=== PATIENT | male | born 1960 | race Caucasian/White ===

== ENCOUNTER → 2017-10-02 | Outpatient (CLI) | payer OTHER ==
[~2017-10-02] MED LIST: ACETAMINOPHEN-1 EAC1 PO; ACETAMINOPHEN650 M5 PO; AMBIEN 5 MG TABL5 M1 PO; AMBIEN CR12.5 MG PO; ASPIRIN EC81 M1 PO; ATIVAN1 MG PO; BRILINTA90 MG PO; CIALIS10 MG PO; ELIQUIS5 MG PO; FISH OIL; IBUPROFEN 200200 M1 PO; IBUPROFEN 800800 M1 PO; LIPITOR40 MG PO; LISINOPRIL40 MG PO; LOPRESSOR 50 MG50 M1; LOPRESSOR50 PO; MACROBID 100 M100 M1 PO; NEOSPORIN OINTM15 GM TP; NIACIN; NORVASC5 MG PO; OMEPRAZOLE40 MG PO; PERCOCET PO; PLAVIX 75 MG TA75 M1 PO; PYRIDIUM200 MG PO; SORINE 80 MG TA80 M1 PO; VALIUM5 MG PO; VITAMIN C120 GM; WELCHOL 625 MG625 M1 PO
[2017-10-02 09:26] LABS: HEMATOCRIT 53.7 % (42.0-52.0); HEMOGLOBIN 18.5 gm/dL (14.0-18.0); MCHC 34.4 g/dL (28.0-37.0); MCV 87.3 fL (80.0-100.0); MPV 6.3 fl. (7.2-11.1); NUCLEATED RBCS 0 /100WBC; PLATELET COUNT* 196 thou/uL (150-400); RBC 6.15 mil/uL (4.50-6.00); RDW-CV 13.7 % (10.5-14.5); WBC 13.6 thou/uL (4.0-11.0)
[2017-10-02 09:43] LABS: ABSOLUTE LYMPHOCYTES 0.5 thou/uL (0.8-5.3); ABSOLUTE MONOCYTES 0.4 thou/uL (0.0-1.2); ABSOLUTE NEUTROPHILS 12.6 thou/uL (1.6-8.1); PLATELET ESTIMATE ADEQUATE
[2017-10-02 09:44] LABS: ALBUMIN 3.8 g/dL (3.4-5.0); ALKALINE PHOSPHATASE 59 U/L (46-116); ANION GAP 11 mmol/L (7-16); BUN 21 mg/dL (7-18); CALCIUM 8.8 mg/dL (8.5-10.1); CHLORIDE 102 mmol/L (98-107); CHOLESTEROL 110 mg/dL (<200); CO2 26 mmol/L (21-32); GLUCOSE 125 mg/dL (70-99); HDL CHOLESTEROL 46 mg/dL (>40); LDL CHOLESTEROL 56 mg/dL (<100); POTASSIUM 3.9 mmol/L (3.5-5.1); SGOT 27 U/L (15-37); SGPT 56 U/L (30-65); SODIUM 139 mmol/L (136-145); TC:HDL 2.4 Ratio (Not establshd); TOTAL PROTEIN 6.9 g/dL (6.4-8.2); TRIGLYCERIDE 44 mg/dL (<150); VLDL 9 mg/dL (<40)
[2017-10-02 09:45] LABS: SERUM ASSESSMENT Clear
== END ==
LOC: M.LAB 09:07
PROVIDERS: Internal Medicine Cardiovascular Disease
DX: I25.10 Atherosclerotic heart disease of native coronary artery without angina pectoris (principal); E78.00 Pure hypercholesterolemia, unspecified

== ENCOUNTER 2018-02-28 07:31 | Inpatient (IN) | payer OTHER ==
[~2018-02-28] VITALS: Ht 185.4 cm; Wt 119.7 kg
[~2018-02-28 07:31] MED LIST changes: -AMBIEN CR12.5 MG PO; -ELIQUIS5 MG PO; -SORINE 80 MG TA80 M1 PO; -WELCHOL 625 MG625 M1 PO
[2018-02-28 07:38] VITALS: BP 146/109
[2018-02-28] MEDS ORDERED: WELCHOL 625 MG625 M1 PO (07:44)
[2018-02-28 08:08] LABS: CALCIUM 8.4 mg/dL (8.5-10.1); CREATININE 1.1 mg/dL (0.6-1.3); POTASSIUM 3.4 mmol/L (3.5-5.1)
[2018-02-28 08:09] LABS: ABSOLUTE EOSINOPHILS 0.2 thou/uL (0.0-0.7); ABSOLUTE LYMPHOCYTES 2.8 thou/uL (0.8-5.3); ABSOLUTE MONOCYTES 0.8 thou/uL (0.0-1.2); BASOPHILS 0.4 %; EOSINOPHILS 1.9 %; HEMATOCRIT 54.8 % (42.0-52.0); HEMOGLOBIN 18.5 gm/dL (14.0-18.0); LYMPHOCYTES 28.8 %; MCHC 33.8 g/dL (28.0-37.0); MCV 88.9 fL (80.0-100.0); MONOCYTES 8.4 %; MPV 6.6 fl. (7.2-11.1); NUCLEATED RBCS 0 /100WBC; PLATELET COUNT* 170 thou/uL (150-400); POLYS 60.5 %; RBC 6.16 mil/uL (4.50-6.00); RDW-CV 12.9 % (10.5-14.5); WBC 9.9 thou/uL (4.0-11.0)
[2018-02-28 08:13] LABS: APTT 27.4 Seconds (25.0-31.3); INR 1.2; PROTIME 11.8 Seconds (9.20-11.50)
[2018-02-28 08:19] LABS: ALBUMIN 3.7 g/dL (3.4-5.0); TOTAL BILIRUBIN 1.1 mg/dL (<0.1-1.0); TOTAL PROTEIN 6.9 g/dL (6.4-8.2)
[2018-02-28 12:25] VITALS: BP 135/92
[2018-02-28 12:40] VITALS: BP 135/90
[2018-02-28 12:40] LABS: AMP/METHAMP Negative (Negative); BARBITURATES Negative (Negative); BENZODIAZEPINES Negative (Negative); COCAINE Negative (Negative); METHADONE Negative (Negative); OPIATES Negative (Negative); PCP Negative (Negative); THC Negative (Negative)
--- NOTE | 2018-02-28 13:59 | EKG ---
[place] [address] ELECTROCARDIOGRAM REPORT Name: LEXUS MORALES Room: [address] ADM IN M.R.#: [id number] Admission: 02/28/18 Attend Phys: Filomena Stanley MD Discharge: Date of : 62 Report #: [id number] THIS REPORT FOR: //name// [facility] ED Test Date: 2018-02-28 Test Time: 07:39:19 Pat Name: LEXUS MORALES Department: Room: [facility] Gender: M Hotel Assistant General Manager: Valerie YOUNG : 1960 Requested By: Trudy Acosta Order Number: [id number] MD: Gene Suarez Measurements Intervals [place] Rate: 114 P: [place]: QRS: 83 QRSD: 98 T: -46 QT: 335 QTc: 462 Interpretive Statements Atrial fibrillation Borderline low voltage, extremity leads Repol abnrm suggests ischemia, inferior leads Minimal ST elevation, lateral leads Compared to ECG 10/27/2016 03:15:57 Early repolarization now present Possible ischemia now present ST (T wave) deviation now present Sinus bradycardia no longer present Atrial premature complex(es) no longer present Myocardial infarct finding no longer present Electronically Signed On 02-28-2018 13:59:33 CDT by Gene Suarez [email or web address] <ELECTRONICALLY SIGNED> By: Gene Suarez MD, [facility] 02/28/18 1359 0739 0739 Gene Suarez MD, [facility] /EPI
--- NOTE | 2018-02-28 14:03 | EKG ---
[place] [address] ELECTROCARDIOGRAM REPORT Name: LEXUS MORALES Room: [address] ADM IN M.R.#: [id number] Admission: 02/28/18 Attend Phys: Filomena Stanley MD Discharge: Date of : 62 Report #: [id number] THIS REPORT FOR: //name// [facility] ED Test Date: 2018-02-28 Test Time: 11:56:29 Pat Name: LEXUS MORALES Department: Room: [facility] Gender: Javascript Engineer: Valerie YOUNG : 1960 Requested By: Trudy Acosta Order Number: [id number] MD: Gene Suarez Measurements Intervals [place] Rate: 78 P: [place]: QRS: 74 QRSD: 109 T: 86 QT: 413 QTc: 471 Interpretive Statements Atrial fibrillation Borderline T wave abnormalities Electronically Signed On 02-28-2018 14:03:12 CDT by Gene Suarez [email or web address] <ELECTRONICALLY SIGNED> By: Gene Suarez MD, [facility] 02/28/18 1403 1156 1156 Gene Suarez MD, FACC /EPI
[2018-02-28] MEDS ORDERED: AMBIEN CR12.5 MG PO (14:04)
[2018-02-28 15:42] VITALS: BP 131/84
--- NOTE | 2018-02-28 17:06 | 2DMMODE ---
[place] [address] 2 D/M-MODE ECHOCARDIOGRAM Name: LEXUS MORALES Room: [address] IN [facility]#: [id number] Admission: 02/28/18 Attend Phys: Filomena Stanley MD Discharge: Date of : 62 Date of Service: 02/28/18 1706 Report #: [id number] THIS REPORT FOR: //name// APPROVED REPORT Study performed: 02/28/2018 14:02:35 EXAM: Comprehensive 2D, Doppler, and color-flow Echocardiogram Patient Location: In-Patient Room #: [facility] [place] [facility] [place] Status: routine BSA: 2.45 HR: 72 bpm BP: 135/92 mmHg Rhythm: NSR Other Information Technically limited study due to body habitus, poor endocardial definition. Indications Atrial Fibrillation Chest Pain Echo Enhancing Agent Indication: Endocardial border delineation Agent(s) / Amount(s) Used: Optison 3 cc 2D Dimensions IVSd: 13.82 (7-11mm) LVOT Diam: 23.85 (18-24mm) LVDd: 50.68 mm PWd: 12.23 (7-11mm) Ascending Ao: 38.71 (22-36mm) LVDs: 33.31 (25-40mm) Aortic Root: 45.46 mm Volumes Left Atrial Volume (Systole) LA ESV Index: 25.10 mL/m2 Aortic Valve AoV Peak Jayme.: 0.82 m/s AO Peak Gr.: 2.71 mmHg LVOT Max P.24 mmHg AO Mean Gr.: 1.47 mmHg LVOT Mean P.99 mmHg LVOT Max V: 0.75 m/s AO V2 VTI: 14.29 cm LVOT Mean V: 0.45 m/[place] [address] 2 D/M-MODE ECHOCARDIOGRAM Name: LEXUS MORALES Room: [address] IN M.R.#: [id number] Admission: 02/28/18 Attend Phys: Filomena Stanley MD Discharge: Date of : 62 Date of Service: 02/28/18 1706 Report #: [id number] IAN (VTI): 4.53 cm2 LVOT V1 VTI: 14.51 cm Mitral Valve MV Decel. Time: 136.32 ms MV PHT: 39.53 ms MVA (PHT): 5.56 cm2 TDI Medial E' Jayme.: 0.11 m/s Lateral E' Jayme.: 0.12 m/s Pulmonary Valve PV Peak Jayme.: 0.79 m/s PV Peak Gr.: 2.51 mmHg Tricuspid Valve RAP Estimate: 5.00 mmHg TR Peak Gr.: 21.12 mmHg RVSP: 26.00 mmHg PA Pressure: 26.00 mmHg Left Ventricle The left ventricle is normal size. There is normal LV segmental wall motion. There is normal left ventricular wall thickness. Left ventricular systolic function is normal. The left ventricular ejection fraction is within the normal range. LVEF is 50-55%. This study is not technically sufficient to allow evaluation of the LV diastolic function due to atrial fibrillation. Right Ventricle The right ventricle is normal size. The right ventricular systolic function is normal. Atria Left atrium is mildly dilated. The right atrium size is normal. Aortic Valve The aortic valve is normal in structure. No aortic regurgitation is present. There is no aortic valvular stenosis. Mitral Valve The mitral valve is normal in structure. Trace mitral regurgitation. No evidence of mitral valve stenosis. Tricuspid Valve The tricuspid valve is normal in structure. Trace tricuspid regurgitation. [place] [address] 2 D/M-MODE ECHOCARDIOGRAM Name: LEXUS MOARLES Room: [address] IN [facility]#: [id number] Admission: 02/28/18 Attend Phys: Filomena Stanley MD Discharge: Date of : 62 Date of Service: 02/28/18 1706 Report #: [id number] Pulmonic Valve The pulmonary valve is normal in structure. Trace pulmonic regurgitation. Great Vessels The aortic root is normal in size. IVC is normal in size and collapses >50% with inspiration. Pericardium There is no pericardial effusion. <Conclusion> The left ventricle is normal size. There is normal left ventricular wall thickness. Left ventricular systolic function is normal. The left ventricular ejection fraction is within the normal range. LVEF is 50-55%. This study is not technically sufficient to allow evaluation of the LV diastolic function due to atrial fibrillation. The right ventricle is normal size. Left atrium is mildly dilated. The aortic valve is normal in structure. The mitral valve is normal in structure. Trace mitral regurgitation. The tricuspid valve is normal in structure. IVC is normal in size and collapses >50% with inspiration. There is no pericardial effusion. There is normal LV segmental wall motion. <ELECTRONICALLY SIGNED> By: Gene Suarez MD, FACC 02/28/181705 05 05 Gene Suarez MD, FACC /INF
--- NOTE | 2018-02-28 18:40 | NUR ---
RECEIVED REPORT FROM YURI IN ER. PT TRANSFERED TO TELE FLOOR AROUND 1240, ASSUMED CARE. PT A&OX4, VSS, O2 SAT >90% ON 2L PER NC, TITRATED TO ROOM AIR. PT ABLE TO USE O2 NEEDED FOR COMFORT. PT ORIENTED TO ROOM, BED AND CALL LIGHT. PT COMMUNICATES UNDERSTANDING. ADMISSION HISTORY, EDUCATION AND ASSESSMENT COMPLETED CHARTED. IV'S INTACT AND INFUSING IVF PER EMAR. PT DENIES PAIN OR DISCOMFORT THIS SHIFT. NO CHEST PAIN. LAB CALLED WITH CRITICAL TROPONIN - CARDIOLOGY AND HOSPITALIST NOTIFIED. ORDERS RECEIVED TO RESTART HEPARIN GTT. STAT EKG. PT TO PROCEED WITH CATH IN AM. AT BEDSIDE. PT EATING AND DRINKING WITHOUT ISSUE. PT TO BE NPO AFTER MIDNIGHT. PT ABLE TO BE UP AD CHETAN - LOW FALL RISK PRECAUTIONS IN PLACE. CALL LIGHT IS WITHIN REACH. HOURLY ROUNDING PERFORMED. WCTM FOR DURATION OF SHIFT.
[2018-02-28 19:40] VITALS: BP 152/97
[2018-03-01] VITALS (16 sets, daily range): BP systolic 124–163; BP diastolic 80–99
[2018-03-01 01:07] LABS: INR 1.2; PROTIME 12.1 Seconds (9.20-11.50)
--- NOTE | 2018-03-01 01:11 | NUR ---
ASSUMED CARE OF PT AT 1900. PT IS ALERT AND ORIENTED. VSS. PERRLA. NO COMPLAINTS OF PAIN. PT IS UP AD CHETAN. PT IS ON A HEPARING DRIP. PT IS IN A FIB ON THE TELEMETRY. PT IS RESTING COMFORTABLY IN BED. RESPIRATIONS ARE EVEN AND NONLABORED. WILL CONTNUE TO MONITOR PT.=
[2018-03-01 01:23] LABS: APTT 42.6 Seconds (25.0-31.3)
[2018-03-01 01:43] LABS: ANION GAP 7 mmol/L (7-16); BUN 12 mg/dL (7-18); CALCIUM 8.2 mg/dL (8.5-10.1); CHLORIDE 103 mmol/L (98-107); CHOLESTEROL 110 mg/dL (<200); CO2 28 mmol/L (21-32); GLUCOSE 101 mg/dL (70-99); HDL CHOLESTEROL 39 mg/dL (>40); POTASSIUM 4.1 mmol/L (3.5-5.1); SODIUM 138 mmol/L (136-145); TC:HDL 2.8 Ratio (Not establshd)
[2018-03-01 02:24] LABS: LDL CHOLESTEROL 56 mg/dL (<100); TRIGLYCERIDE 75 mg/dL (<150); VLDL 15 mg/dL (<40)
[2018-03-01 02:30] LABS: SERUM ASSESSMENT CLEAR
--- NOTE | 2018-03-01 07:15 | NUR ---
ASSUMED CARE OF PT ASSESSED AND DOCUMENTED. PT IS ON CARDIAC MONITER TRACING AFIB/AFLUTTER HR 75. PT IS A&O WITH NO C/O PAIN. VSS WNL. PT IS AFEBRILE. HE IS ON ROOM AIR. PT CONT ON A HEPARIN GTT AND IS NPO FOR SCHEDULED FINANCIAL REPORTING ADVISOR. BED IS IN LOW POSITION CALL LIGHT IS IN REACH. WM.
[2018-03-01 10:04] LABS: CALCIUM 8.2 mg/dL (8.5-10.1); MAGNESIUM 1.8 mg/dL (1.8-2.4); POTASSIUM 3.7 mmol/L (3.5-5.1)
--- NOTE | 2018-03-01 11:51 | NUR ---
Pt is A&O. Resides at home with , in room a bedside. Pt is active and independent. Pt states that he is able to work, but has been out of work since May when he was downsized, Pt actively seeking employment. No DME. No hx of HH or SNF. Pt to have cath today. Goal is home at [place]. Following.
--- NOTE | 2018-03-01 16:07 | NUR ---
PT RETURNED FROM THE KNOCK UP ASSEMBLER AT 553. REPORT TAKEN FROM BRANDI. PT REC 5 OF VERSED AND 125 OF FENTANYL. NOM CHANGES IN VESSELS. PT CARDIOVERTED WITH 300 JOULES. PT IN SR. VSS WNL. PT REMAINS AFEBRILE. DINNER HAS BEEN ORDERED.
--- NOTE | 2018-03-01 17:14 | NUR ---
PT HAS RESTED IN HIS ROOM WITH AT BEDSIDE. HE REMAINS SR ON THE MONITER. EDUCATION GIVEN ON DEMAND. HOURLY ROUNDING COMPLETE. SMOKING CESSATION PACKAGE GIVEN.
--- NOTE | 2018-03-01 18:01 | EKG ---
[place] [address] ELECTROCARDIOGRAM REPORT Name: LEXUS MORALES Room: [address] ADM IN M.R.#: [id number] Admission: 02/28/18 Attend Phys: Filomena Stanley MD Discharge: Date of : 62 Report #: [id number] THIS REPORT FOR: //name// [facility] Test Date: 2018-02-28 Test Time: 17:28:14 Pat Name: LEXUS MORALES Department: Room: [address] Gender: M Wan Support Specialist: [facility] : 1960 Requested By: Filomena Stanley Order Number: [id number] Reading MD: Darion Fisher Measurements Intervals [place] Rate: 75 P: [place]: QRS: 89 QRSD: 130 T: 98 QT: 434 QTc: 485 Interpretive Statements Atrial fibrillation Nonspecific intraventricular conduction delay Nonspecific T abnormalities, lateral leads Compared to ECG 02/28/2018 11:56:29 T-wave abnormality still present Electronically Signed On 03-01-2018 18:01:31 CDT by Darion Fisher [email or web address] <ELECTRONICALLY SIGNED> By: Darion Fisher MD, [facility] 03/01/18 1801 172 27 Darion Fisher MD, [facility] /EPI
--- NOTE | 2018-03-01 18:11 | EKG ---
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: : 1960 Requested By: Jasmyne Case Order Number: [id number] Reading MD: Darion Fisher Measurements Intervals [place] Rate: 76 P: [place]: QRS: 92 QRSD: 98 T: 130 QT: 450 QTc: 507 Interpretive Statements Atrial fibrillation Borderline right axis deviation Low voltage, precordial leads Nonspecific T abnormalities, lateral leads Baseline wander in lead(s) V1 Compared to ECG 02/28/2018 11:56:29 T-wave abnormality still present Electronically Signed On 03-01-2018 18:10:57 CDT by Darion Fisher [email or web address] <ELECTRONICALLY SIGNED> By: Darion Fisher MD, FACC 03/01/18 1810 4 4 Darion Fisher MD, FAC /EPI
--- NOTE | 2018-03-01 18:15 | EKG ---
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
--- NOTE | 2018-03-01 19:28 | CARD ---
[address] [address] CARDIAC CATH REPORT Name: MILLIEGEETHALEXUSGELA LACEY Room: [address] IN ..#: [id number] Admission: 02/28/18 Attend Phys: Filomena Stanley MD Discharge: Date of : 62 Report #: [id number] THIS REPORT FOR: //name// APPROVED REPORT Study performed: 03/01/2018 13:17:23 Patient Details Patient Status: In-Patient Room #: 212 The patient is a 58 year-old male Event Personnel Demetrio Davis Sailor, Jeannine Ngo RN Community Resource Consultant, Vidya Cooley Monitor, Raymond Proctor (R) Scrub, Micehlle Edwards RTR Scrub Procedures Performed Art Access - R femoral artery* , Selective Right and Left Coronary Angiography, DANIELS Angiogram, SVG AngiogramLeft Heart Cath w/or w/o Coronaries [id number] [facility] Procedure Narrative The patient was brought electively to the Cardiac Catheterization Laboratory and was prepped and draped in a sterile manner. The right femoral was infiltrated with 2% Lidocaine subcutaneous anesthesia. A 6fr Ultimum Sheath sheath was inserted into the right femoral artery. Coronary angiography was performed using coronary diagnostic catheters. The right coronary system was accessed and visualized with a MPA 6fr catheter. The left coronary system was accessed and visualized with a 6fr JL 4 catheter. The left ventricle was accessed and visualized with a 6fr Pigtail catheter. Left ventricular/Aortic Valve gradient assessed . Left ventriculogram was performed in SAUER projection. Pre-demployment femoral angiogram was performed . Closure device was deployed with a 6 Fr MynxGrip 6/7F. The patient tolerated the procedure well and there were no complications associated with the procedure. Intraoperative Conscious Sedation Sedation start time: 14:06 Case end Time: 14:30 Fentanyl 75 mcg Versed 3 mg Fluoro Time: 6.8 minutes Dose: DAP [id number] cGycm2 1430.46 mGy Contrast Type and Amount: Omnipaque [address] [place] [address] CARDIAC CATH REPORT Name: LEXUS MORALES Room: [address] IN [facility]#: [id number] Admission: 02/28/18 Attend Phys: Filomena Stanley MD Discharge: Date of : 62 Report #: [id number] Coronary Angiography The patient's coronary anatomy is right dominant. [place] Artery Percent Stenosis DANIELS graft to the LAD widely patent. Saphenous vein graft to the PDA and posterior lateral branch of the right coronary artery widely patent. Saphenous vein graft to the diagonal and obtuse marginal branch occluded. Diagnostic Cath Left Main Short and normal. LAD Totally occluded proximally. The mid and distal portion filled by DANIELS graft and free of significant disease. Extensive collaterals to the obtuse marginal branch noted. Circumflex Diffusely moderately plaqued throughout without hemodynamically significant stenoses. OM1 Totally occluded at the ostium and fills by left to left collaterals. OM2 Mildly plaqued. Right Coronary Totally occluded proximally. R PDA Filled by saphenous vein graft and free of significant disease. RPLV Filled by saphenous vein graft and free of significant disease. Hemodynamics The aortic pressure is 143/89 mmHg with a mean of mmHg. The left ventricular pressure is 139/11 mmHg with a mean of mmHg. The left ventricular end diastolic pressure is 18 mmHg. There was no gradient across the aortic valve upon pullback. Conclusion 1. Three-vessel coronary artery disease as outlined above. 2. Patent DANIELS graft to the LAD. 3. Patent saphenous vein graft to the right PDA and posterior lateral LV branch. 4. Occluded graft to the diagonal and obtuse marginal. 5. Extensive left to left collaterals to the obtuse marginal system. 6. Mildly elevated left ventricular end-diastolic [place] [address] CARDIAC CATH REPORT Name: LEXUS MORALES Room: [address] IN [facility]#: [id number] Admission: 02/28/18 Attend Phys: Filomena Stanley MD Discharge: Date of : 62 Report #: [id number] 1. Continue aggressive risk factor modification and medical management. <ELECTRONICALLY SIGNED> By: Demetrio Davis MD, [facility] 10/1927 27 27[facility] Center[facility]yenne Davis MD, FACC /INF
[2018-03-02] VITALS: BP 139/71
[2018-03-02 04:00] VITALS: BP 139/67
--- NOTE | 2018-03-02 04:26 | NUR ---
Assumed care of patient at 1930. Patient rested well throughout the night. Full assessment performed and documented; hourly rounding completed for patient's safety. Patient is A&O x4; up ad brayden in room. SR-SA with PVCs noted on telemetry. Patient c/o stabbing headache that woke him up around 0300; physician notified and order for Tylenol received. All VSS. IVL intact and patent. Call light within patient's reach at all times. Will continue to monitor.
[2018-03-02 08:00] VITALS: BP 128/87
[2018-03-02 08:31] VITALS: BP 139/67
--- NOTE | 2018-03-02 12:16 | EKG ---
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 03/02/18 1216 1 09 Darion Fisher MD, [facility] /EPI
[2018-03-02 12:25] VITALS: BP 126/74
[2018-03-02] MEDS ORDERED: ELIQUIS5 MG PO (15:22)
[2018-03-02] MEDS ORDERED: SORINE 80 MG TA80 M1 PO (15:23)
[2018-03-02] MEDS ORDERED: PLAVIX 75 MG TA75 M1 PO (16:05)
--- NOTE | 2018-03-02 16:45 | NUR ---
ASSUMED CARE OF PT AT 0730. PT REMAINS A&O X4 CALMAND XCOOPERATIVE. PT VSS AND TRACING SA WITH PVC'S ON THE MONITOR. PT DENIES SOA OR CP. PT STABLE ON FEET AND TOLERATING HIS DIET WELL. PT CATH SITE TO RIGHT GROIN LOOKS SUPPLE AND W/O S/S OF BLEEDING.PT DISCHARGED HOME WITH . PT AND VERBALIZED UNDERSTANDING OF DISCHARGE INSTRUCTIONS THAT INCLUDED CATH SITE CARE, ACTIVITY RESTRICTIONS, DIETARY MODIFICATIONS AND MEDICATION MANAGEMENT. IV AND BOILER ENGINEER REMOVED PRIOR TO DC. ALL PRESCRIPTIOMS AND ALL PERSONAL BELONGINGS TAKEN BY PT AT DISCHARGE.
[2018-03-02 17:03] VITALS: BP 114/74
--- NOTE | 2018-03-22 08:22 | CARD ---
[address] [address] CARDIAC CATH REPORT Name: LEXUS MORALES Room: [address]#: [id number] Admission: 02/28/18 Attend Phys: Filoemna Stanley MD Discharge: 03/02/18 Date of : 62 Report #: [id number] THIS REPORT FOR: //name// CC: Filomena Reynolds DATE OF SERVICE: 02/28/2018 INDICATION: Persistent atrial fibrillation. PROCEDURE: Direct current cardioversion. DESCRIPTION OF PROCEDURE: After informed consent was obtained, the patient was brought to the cardiac catheterization holding area. The patient was given intravenous fentanyl and Versed for conscious sedation. Once the patient was adequately sedated, he received a single biphasic shock of 300 joules converting him to normal sinus rhythm. The patient tolerated the procedure well without complication. IMPRESSION: 1. Persistent atrial fibrillation. 2. Successful DC cardioversion to normal sinus rhythm. <ELECTRONICALLY SIGNED> By: Demetrio Davis MD, FACC 03/22/18 0822 1634 0547[facility] Hospit[facility] Davis MD, FACC /nt
== END 2018-03-02 16:40 | disposition home or self-care (01) | DRG 280 ==
LOC: M.ERS 07:31 → M.2W 10:28 → M.TBA-ER 10:28 → M.2W 12:40
PROVIDERS: Family Medicine; Nurse Practitioner Family; Personal Emergency Response Attendant; ADMIT Family Medicine
PROC: 4A023N7 Measurement of Cardiac Sampling and Pressure, Left Heart, Percutaneous Approach (ICD-10-PCS; principal; 2018-03-01)
PROC: B21F1ZZ Fluoroscopy of Other Bypass Graft using Low Osmolar Contrast (ICD-10-PCS; principal; 2018-03-01)
PROC: B2111ZZ Fluoroscopy of Multiple Coronary Arteries using Low Osmolar Contrast (ICD-10-PCS; principal; 2018-03-01)
PROC: B2151ZZ Fluoroscopy of Left Heart using Low Osmolar Contrast (ICD-10-PCS; principal; 2018-03-01)
PROC: B2181ZZ Fluoroscopy of Left Internal Mammary Bypass Graft using Low Osmolar Contrast (ICD-10-PCS; principal; 2018-03-01)
DX: I21.4 Non-ST elevation (NSTEMI) myocardial infarction (principal); I50.43 Acute on chronic combined systolic (congestive) and diastolic (congestive) heart failure; D68.69 Other thrombophilia; I48.91 Unspecified atrial fibrillation; I24.9 Acute ischemic heart disease, unspecified; I24.8 Other forms of acute ischemic heart disease; E78.00 Pure hypercholesterolemia, unspecified; I25.10 Atherosclerotic heart disease of native coronary artery without angina pectoris; I11.0 Hypertensive heart disease with heart failure; E78.5 Hyperlipidemia, unspecified; K58.9 Irritable bowel syndrome, unspecified; E87.6 Hypokalemia; I25.2 Old myocardial infarction; Z95.1 Presence of aortocoronary bypass graft; Z95.5 Presence of coronary angioplasty implant and graft; Z87.442 Personal history of urinary calculi; Z88.1 Allergy status to other antibiotic agents; Z87.891 Personal history of nicotine dependence; Z82.49 Family history of ischemic heart disease and other diseases of the circulatory system; Z79.01 Long term (current) use of anticoagulants; Z79.82 Long term (current) use of aspirin; Z79.899 Other long term (current) drug therapy; Z28.21 Immunization not carried out because of patient refusal

== ENCOUNTER 2018-06-17 11:47 | Emergency (ER) | payer OTHER ==
[~2018-06-17] VITALS: Ht 185.4 cm; Wt 116.1 kg
[~2018-06-17 11:47] MED LIST changes: +AMBIEN CR12.5 MG PO; +ELIQUIS5 MG PO; +SORINE 80 MG TA80 M1 PO; +WELCHOL 625 MG625 M1 PO
[2018-06-17] MEDS ORDERED: FLAGYL500 M1 PO (12:08)
[2018-06-17] MEDS ORDERED: FLOMAX0.4 MG PO (12:08)
[2018-06-17] MEDS ORDERED: LOMOTIL TABLET1 EACH PO (12:09)
[2018-06-17 12:28] LABS: ABSOLUTE EOSINOPHILS 0.2 thou/uL (0.0-0.7); ABSOLUTE LYMPHOCYTES 1.4 thou/uL (0.8-5.3); ABSOLUTE MONOCYTES 0.8 thou/uL (0.0-1.2); ABSOLUTE NEUTROPHILS 5.9 thou/uL (1.6-8.1); BASOPHILS 0.5 %; EOSINOPHILS 2.1 %; HEMATOCRIT 49.6 % (42.0-52.0); HEMOGLOBIN 17.3 gm/dL (14.0-18.0); LYMPHOCYTES 16.7 %; MCH 30.6 pg (26.0-34.0); MCHC 34.9 g/dL (28.0-37.0); MCV 87.8 fL (80.0-100.0); MONOCYTES 10.1 %; MPV 6.7 fl. (7.2-11.1); NUCLEATED RBCS 0 /100WBC; PLATELET COUNT* 152 thou/uL (150-400); POLYS 70.6 %; RBC 5.65 mil/uL (4.50-6.00); RDW-CV 13.9 % (10.5-14.5); WBC 8.3 thou/uL (4.0-11.0)
[2018-06-17 12:35] LABS: ANION GAP 4 mmol/L (7-16); BUN 14 mg/dL (7-18); CALCIUM 8.4 mg/dL (8.5-10.1); CHLORIDE 108 mmol/L (98-107); CO2 30 mmol/L (21-32); GLUCOSE 99 mg/dL (70-99); SODIUM 142 mmol/L (136-145)
[2018-06-17 12:37] LABS: APTT 28.6 Seconds (25.0-31.3); INR 1.2; PROTIME 11.9 Seconds (9.20-11.50)
[2018-06-17 12:57] LABS: ALBUMIN 3.4 g/dL (3.4-5.0); ALKALINE PHOSPHATASE 97 U/L (46-116); LIPASE 159 U/L (73-393); MAGNESIUM 1.7 mg/dL (1.8-2.4); NT-PRO BRAIN NAT PEPTIDE 535 pg/mL (<300); SGOT 51 U/L (15-37); SGPT 93 U/L (30-65); TOTAL BILIRUBIN 0.6 mg/dL (<0.1-1.0); TOTAL PROTEIN 6.2 g/dL (6.4-8.2); TROPONIN-I LEVEL <0.06 ng/mL (<0.06)
[2018-06-17 13:23] VITALS: BP 136/75
--- NOTE | 2018-06-17 16:23 | EKG ---
[place] [address] ELECTROCARDIOGRAM REPORT Name: LEXUS MORALES Room: [facility]#: [id number] Admission: 06/17/18 Attend Phys: Discharge: 06/17/18 Date of : 62 Report #: [id number] THIS REPORT FOR: //name// [facility] ED Test Date: 2018-06-17 Test Time: 12:08:51 Pat Name: LEXUS MORALES Department: Room: Gender: M Identity Access Management Architect: KENNEDY : 1960 Requested By: Yobani Darling Order Number: [id number] MD: Darion Fisher Measurements Intervals [place] Rate: 65 P: 30 [place]: 143 QRS: 56 QRSD: 130 T: 72 QT: 433 QTc: 451 Interpretive Statements Sinus rhythm Supraventricular bigeminy Nonspecific st changes Compared to ECG 03/02/2018 09:12:32 Atrial premature complex(es) now present Electronically Signed On 06-17-2018 16:22:46 [employer] MAINTENANCE by Darion Fisher [email or web address] <ELECTRONICALLY SIGNED> By: Darion Fisher MD, [facility] 06/17/18 1622 07 07 Darion Fisher MD, [facility] /EPI
--- NOTE | 2018-06-19 12:35 | CON ---
[address] [address] CONSULTATION Name: LEXUS MORALES [facility] [place] [facility] [id number] Admission: 06/17/18 Attend Phys: Discharge: 06/17/18 Date of : 62 Report #: [id number] THIS REPORT FOR: //name// CC: Yobani Reynolds DO DATE OF SERVICE: 06/17/2018 HISTORY OF PRESENT ILLNESS: The patient is a 58-year-old white male who I saw in the Emergency Room today after he complained of chest pain. The patient has an extensive past medical history. He had previous quadruple coronary artery bypass surgery in [place], [place] in 1997. In 2015, he underwent coronary artery stenting here at [place]. He was actually admitted here in February with chest pain. Dr. Davis performed repeat cardiac catheterization, which showed a patent DANIELS graft to the LAD, a vein graft to the diagonal, a good vein graft in sequence to the posterior descending and posterolateral branch of the left ventricle. His graft to the circumflex was occluded, filled by collaterals. He was found to be in atrial fibrillation, was cardioverted and placed on sotalol and Eliquis. He actually just saw my partner, Dr. Davis in April. He states he was doing well until 5 days ago, he felt a pain in his left armpit. It is not related to exertion or meals. It tended to occur off and on a couple of days. It was not associated with shortness of breath, diaphoresis, nausea. He denied any trauma to the area. He did well until today. He felt a pain over the left side of his chest. It felt a dull ache. It is not related to coughing. He has had no bleeding. PAST MEDICAL HISTORY: Significant for cholecystectomy. He has had uvulectomy for sleep apnea. He has a history of hypertension and hyperlipidemia. MEDICATIONS: Include amlodipine, atorvastatin, Plavix, WelChol following his cholecystectomy, Eliquis, lisinopril, Ativan, sotalol, Flomax. ALLERGIES: HE HAS INTOLERANCE TO CIPRO. FAMILY HISTORY: Positive for heart disease. SOCIAL HISTORY: He is . He and his live here in [place]. 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 Quit smoking years ago, rarely drinks alcohol. REVIEW OF SYSTEMS: He has had no history of stroke, asthma, peptic ulcer disease, liver disease, kidney disease, cancer, psychiatric illness, chronic skin condition. PHYSICAL EXAMINATION: GENERAL: Revealed a [place] [address] CONSULTATION Name: LEXUS MORALES Room: [facility]#: [id number] Admission: 06/17/18 Attend Phys: Discharge: 06/17/18 Date of : 62 Report #: [id number] VITAL SIGNS: Blood pressure 160/80, pulse is 60. He was afebrile. HEENT: He was anicteric. Conjunctivae pink. Mucous membranes moist. NECK: Veins do not appear distended. No carotid bruits heard. Neck was supple. CHEST: Clear to auscultation. CARDIOVASCULAR: Regular rate without murmur. ABDOMEN: Soft, nontender, no masses were palpated. EXTREMITIES: Had no edema. Posterior pulse 2+ bilaterally. SKIN: Warm, dry. NEUROLOGIC: Nonfocal. LABORATORY DATA: Workup in the Emergency Room today, he had a portable chest x-ray that showed cardiomegaly, clear lung scott. His lab work, sodium 142, creatinine 1.0. Troponin 0.06. His white blood cell count 8.3, hemoglobin 17.3. IMPRESSION AND RECOMMENDATIONS: 1. Chest pain, atypical for angina. No evidence of acute coronary syndrome. Suspect musculoskeletal. 2. Previous coronary artery stent. The patient is on Plavix. 3. History of atrial fibrillation. The patient is on sotalol and Eliquis. 4. Hypertension. The patient on a beta yogi, calcium yogi and RUPINDER inhibitor. 5. Hyperlipidemia. The patient is on a statin drug. 6. History of sleep apnea. The patient had previous surgery. At this time, it is reasonable to discharge the patient from the Emergency Room and I will arrange followup in the Cardiology Clinic. <ELECTRONICALLY SIGNED> By: Darion Fisher MD, FACC 06/19/18 1235 1304 1934Dleon Fisher MD, FACC /nt
== END 2018-06-17 13:24 | disposition home or self-care (01) ==
LOC: M.ERS 11:47
PROVIDERS: Family Medicine
DX: R07.89 Other chest pain (principal); E78.00 Pure hypercholesterolemia, unspecified; Z95.1 Presence of aortocoronary bypass graft; Z95.5 Presence of coronary angioplasty implant and graft; Z87.891 Personal history of nicotine dependence; Z88.1 Allergy status to other antibiotic agents

== ENCOUNTER 2018-10-06 19:57 | Emergency (ER) | payer BC ==
[~2018-10-06] VITALS: Ht 185.4 cm; Wt 117.9 kg
[~2018-10-06 19:57] MED LIST changes: +FLAGYL500 M1 PO; +FLOMAX0.4 MG PO; +LOMOTIL TABLET1 EACH PO
[2018-10-06] MEDS ORDERED: GABAPENTIN 100100 MG (20:15)
[2018-10-06 20:20] LABS: ABSOLUTE BASOPHILS 0.1 thou/uL (0.0-0.2); ABSOLUTE EOSINOPHILS 0.2 thou/uL (0.0-0.7); ABSOLUTE MONOCYTES 0.7 thou/uL (0.0-1.2); ABSOLUTE NEUTROPHILS 5.6 thou/uL (1.6-8.1); BASOPHILS 0.7 %; HEMATOCRIT 51.7 % (42.0-52.0); HEMOGLOBIN 17.6 gm/dL (14.0-18.0); LYMPHOCYTES 23.1 %; MCH 29.4 pg (26.0-34.0); MCV 86.4 fL (80.0-100.0); MPV 6.7 fl. (7.2-11.1); NUCLEATED RBCS 0 /100WBC; PLATELET COUNT* 158 thou/uL (150-400); POLYS 66.2 %; RBC 5.99 mil/uL (4.50-6.00); RDW-CV 13.4 % (10.5-14.5); WBC 8.5 thou/uL (4.0-11.0)
[2018-10-06 20:26] LABS: ANION GAP 8 mmol/L (7-16); BUN 14 mg/dL (7-18); CALCIUM 8.6 mg/dL (8.5-10.1); CHLORIDE 103 mmol/L (98-107); CO2 29 mmol/L (21-32); GLUCOSE 107 mg/dL (70-99); POTASSIUM 3.5 mmol/L (3.5-5.1); SODIUM 140 mmol/L (136-145)
[2018-10-06 20:37] LABS: ALKALINE PHOSPHATASE 77 U/L (46-116); LIPASE 109 U/L (73-393); MAGNESIUM 1.6 mg/dL (1.8-2.4); NT-PRO BRAIN NAT PEPTIDE 379 pg/mL (<300); SGOT 51 U/L (15-37); SGPT 60 U/L (30-65); TOTAL BILIRUBIN 1.8 mg/dL (<0.1-1.0); TOTAL PROTEIN 7.1 g/dL (6.4-8.2); TROPONIN-I LEVEL <0.06 ng/mL (<0.06)
[2018-10-06] MEDS ORDERED: HYDROCODONE-AP1 EAC6 PO (22:14)
[2018-10-06] MEDS ORDERED: FLEXERIL PO (22:14)
[2018-10-06 22:36] VITALS: BP 154/80
--- NOTE | 2018-10-08 14:26 | EKG ---
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 : 1960 Requested By: Demetrius Power Order Number: [id number] MD: Avery Headley Measurements Intervals [place] Rate: 53 P: 24 FL: 159 QRS: 54 QRSD: 114 T: 58 QT: 472 QTc: 444 Interpretive Statements Sinus rhythm Sinus pause Borderline intraventricular conduction delay Borderline low voltage, extremity leads Compared to ECG 06/17/2018 12:08:51 Sinus pause or arrest now present Atrial premature complex(es) no longer present ST (T wave) deviation no longer present Electronically Signed On 10-08-2018 14:25:54 CDT by Avery Headley [email or web address] <ELECTRONICALLY SIGNED> By: Avery Headley MD, FACC 10/08/18 1425 58 2159 Avery Headley MD, FAC /EPI
--- NOTE | 2018-10-08 14:26 | EKG ---
[place] [address] ELECTROCARDIOGRAM REPORT Name: LEXUS MORALES 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 : 1960 Requested By: Demetrius Power Order Number: [id number] MD: Avery Headley Measurements Intervals [place] Rate: 57 P: 32 ND: 159 QRS: 75 QRSD: 99 T: 55 QT: 428 QTc: 417 Interpretive Statements Sinus rhythm Multiform ventricular premature complexes Borderline low voltage, extremity leads Compared to ECG 06/17/2018 12:08:51 Ventricular premature complex(es) now present Atrial premature complex(es) no longer present ST (T wave) deviation no longer present Electronically Signed On 10-08-2018 14:25:49 CDT by Avery Headley [email or web address] <ELECTRONICALLY SIGNED> By: Avery Headley MD, [facility] 10/08/18 1425 00 00 Avery Headley MD, [facility] /EPI
== END 2018-10-06 22:36 | disposition home or self-care (01) ==
LOC: M.ERS 19:57
PROVIDERS: Emergency Medicine Emergency Medical Services
DX: R07.89 Other chest pain (principal); E78.00 Pure hypercholesterolemia, unspecified; K58.9 Irritable bowel syndrome, unspecified; Z87.891 Personal history of nicotine dependence; Z88.1 Allergy status to other antibiotic agents; Z87.442 Personal history of urinary calculi; Z95.5 Presence of coronary angioplasty implant and graft; Z90.49 Acquired absence of other specified parts of digestive tract

== ENCOUNTER 2018-10-31 21:03 | Emergency (ER) | payer BC ==
[~2018-10-31] VITALS: Ht 185.4 cm; Wt 117.9 kg
[~2018-10-31 21:03] MED LIST changes: +FLEXERIL PO; +GABAPENTIN 100100 MG; +HYDROCODONE-AP1 EAC6 PO
[2018-10-31] MEDS ORDERED: AFEDITAB CR60 M1 PO (21:23)
[2018-10-31 21:26] LABS: ABSOLUTE BASOPHILS 0.1 thou/uL (0.0-0.2); ABSOLUTE EOSINOPHILS 0.2 thou/uL (0.0-0.7); ABSOLUTE LYMPHOCYTES 1.1 thou/uL (0.8-5.3); ABSOLUTE MONOCYTES 0.8 thou/uL (0.0-1.2); ABSOLUTE NEUTROPHILS 5.8 thou/uL (1.6-8.1); BASOPHILS 0.8 %; EOSINOPHILS 2.1 %; HEMATOCRIT 51.7 % (42.0-52.0); LYMPHOCYTES 13.8 %; MCH 29.7 pg (26.0-34.0); MCHC 34.7 g/dL (28.0-37.0); MCV 85.4 fL (80.0-100.0); MONOCYTES 10.6 %; MPV 6.6 fl. (7.2-11.1); NUCLEATED RBCS 0 /100WBC; PLATELET COUNT* 175 thou/uL (150-400); POLYS 72.7 %; RBC 6.05 mil/uL (4.50-6.00); RDW-CV 13.3 % (10.5-14.5)
[2018-10-31 21:35] LABS: ANION GAP 11 mmol/L (7-16); BUN 17 mg/dL (7-18); CALCIUM 8.8 mg/dL (8.5-10.1); CHLORIDE 101 mmol/L (98-107); CO2 26 mmol/L (21-32); CREATININE 0.9 mg/dL (0.6-1.3); GLUCOSE 112 mg/dL (70-99); POTASSIUM 3.8 mmol/L (3.5-5.1); SODIUM 138 mmol/L (136-145)
[2018-10-31 21:36] LABS: APTT 30.3 Seconds (25.0-31.3); INR 1.1; PROTIME 11.5 Seconds (9.20-11.50)
[2018-10-31 21:59] LABS: ALBUMIN 3.9 g/dL (3.4-5.0); ALKALINE PHOSPHATASE 86 U/L (46-116); CK-MB MASS 1.6 ng/mL (<0.5-3.6); LIPASE 93 U/L (73-393); MAGNESIUM 1.7 mg/dL (1.8-2.4); NT-PRO BRAIN NAT PEPTIDE 109 pg/mL (<300); SGOT 76 U/L (15-37); SGPT 86 U/L (30-65); TOTAL BILIRUBIN 1.1 mg/dL (<0.1-1.0); TOTAL PROTEIN 7.2 g/dL (6.4-8.2); TROPONIN-I LEVEL <0.06 ng/mL (<0.06)
[2018-10-31] MEDS ORDERED: PERCOCET 5-3251 EACH PO (23:47)
[2018-10-31] MEDS ORDERED: PROTONIX40 M1 PO (23:47)
[2018-11-01 00:06] VITALS: BP 130/80
--- NOTE | 2018-11-01 14:06 | EKG ---
[place] [address] ELECTROCARDIOGRAM REPORT Name: LEXUS MORALES [id number] Admission: 10/31/18 Attend Phys: Discharge: 11/01/18 Date of : 62 Report #: [id number] THIS REPORT FOR: //name// [facility] ED Test Date: 2018-10-31 Test Time: 21:22:09 Pat Name: LEXUS MORALES Department: Room: Gender: M [place] Consultant: BEBE : 1960 Requested By: Yobani Darling Order Number: [id number] MD: Darion Fisher Measurements Intervals [place] Rate: 64 P: 7 GA: 154 QRS: 72 QRSD: 101 T: 56 QT: 423 QTc: 437 Interpretive Statements Sinus rhythm septal infarct, age indeterminate Compared to ECG 10/06/2018 21:59:13 Sinus pause or arrest no longer present Electronically Signed On 11-01-2018 14:05:51 CDT by Darion Fisher [email or web address] <ELECTRONICALLY SIGNED> By: Darion Fisher MD, [facility] 11/01/18 1405 21 21 Darion Fisher MD, FACC /EPI
== END 2018-11-01 00:07 | disposition home or self-care (01) ==
LOC: M.ERS 21:03
PROVIDERS: Family Medicine
DX: R10.84 Generalized abdominal pain (principal); R10.13 Epigastric pain; E78.00 Pure hypercholesterolemia, unspecified; K58.9 Irritable bowel syndrome, unspecified; Z87.891 Personal history of nicotine dependence; Z88.1 Allergy status to other antibiotic agents; Z87.442 Personal history of urinary calculi; Z95.5 Presence of coronary angioplasty implant and graft; Z90.49 Acquired absence of other specified parts of digestive tract

== ENCOUNTER → 2018-12-03 | Outpatient (CLI) | payer BC ==
[~2018-12-03] MED LIST changes: +AFEDITAB CR60 M1 PO; +PERCOCET 5-3251 EACH PO; +PROTONIX40 M1 PO
[2018-12-03 11:13] LABS: ALBUMIN 3.7 g/dL (3.4-5.0); DIRECT BILIRUBIN 0.2 mg/dL (<0.1-0.3); TOTAL BILIRUBIN 0.7 mg/dL (<0.1-1.0); TOTAL PROTEIN 6.8 g/dL (6.4-8.2)
== END ==
LOC: M.LAB 10:36
PROVIDERS: Internal Medicine Gastroenterology
DX: K83.8 Other specified diseases of biliary tract (principal); R94.5 Abnormal results of liver function studies

== ENCOUNTER → 2018-12-12 | Outpatient (CLI) | payer BC ==
[2018-12-13 02:06] LABS: HEPATITIS B SURFACE AG Negative (Negative)
== END ==
LOC: M.LAB 10:00
PROVIDERS: Internal Medicine Gastroenterology
DX: R94.5 Abnormal results of liver function studies (principal)

== ENCOUNTER → 2018-12-16 | Outpatient (CLI) | payer BC | LOC: M.ULTRA 07:58 | DX: R16.2 Hepatomegaly with splenomegaly, not elsewhere classified (principal); Z90.49 Acquired absence of other specified parts of digestive tract ==

== ENCOUNTER → 2019-01-23 | Outpatient (CLI) | payer BC | LOC: M.MRI 07:10 | DX: S86.012A Strain of left Achilles tendon, initial encounter (principal); M76.62 Achilles tendinitis, left leg; X58.XXXA Exposure to other specified factors, initial encounter; Y93.89 Activity, other specified; Y92.89 Other specified places as the place of occurrence of the external cause; Y99.8 Other external cause status ==

== ENCOUNTER → 2019-01-31 | Outpatient (CLI) | payer BC ==
[2019-01-31 10:38] LABS: ALBUMIN 3.5 g/dL (3.4-5.0); ALKALINE PHOSPHATASE 75 U/L (46-116); ANION GAP 7 mmol/L (7-16); BUN 16 mg/dL (7-18); CALCIUM 8.4 mg/dL (8.5-10.1); CHLORIDE 106 mmol/L (98-107); CHOLESTEROL 130 mg/dL (<200); CO2 29 mmol/L (21-32); GLUCOSE 114 mg/dL (70-99); HDL CHOLESTEROL 40 mg/dL (>40); LDL CHOLESTEROL 73 mg/dL (<100); SGOT 19 U/L (15-37); SGPT 62 U/L (30-65); SODIUM 142 mmol/L (136-145); TC:HDL 3.3 Ratio (Not establshd); TOTAL PROTEIN 6.5 g/dL (6.4-8.2); TRIGLYCERIDE 88 mg/dL (<150); VLDL 18 mg/dL (<40)
[2019-01-31 10:39] LABS: SERUM ASSESSMENT Clear
== END ==
LOC: M.LAB 09:48
PROVIDERS: Internal Medicine Cardiovascular Disease
DX: I25.10 Atherosclerotic heart disease of native coronary artery without angina pectoris (principal); E78.00 Pure hypercholesterolemia, unspecified

== ENCOUNTER → 2019-07-22 | Outpatient (CLI) | payer BC ==
[2019-07-22 09:33] LABS: ALBUMIN 3.7 g/dL (3.4-5.0); ALKALINE PHOSPHATASE 81 U/L (46-116); ANION GAP 6 mmol/L (7-16); BUN 17 mg/dL (7-18); CALCIUM 7.8 mg/dL (8.5-10.1); CHLORIDE 106 mmol/L (98-107); CHOLESTEROL 111 mg/dL (<200); CK-MB MASS 1.5 ng/mL (<0.5-3.6); CO2 29 mmol/L (21-32); GLUCOSE 121 mg/dL (70-99); HDL CHOLESTEROL 38 mg/dL (>40); LDL CHOLESTEROL 57 mg/dL (<100); POTASSIUM 3.8 mmol/L (3.5-5.1); SGOT 59 U/L (15-37); SGPT 107 U/L (30-65); SODIUM 141 mmol/L (136-145); TC:HDL 2.9 Ratio (Not establshd); TOTAL PROTEIN 6.8 g/dL (6.4-8.2); TRIGLYCERIDE 80 mg/dL (<150); VLDL 16 mg/dL (<40)
[2019-07-22 09:37] LABS: SERUM ASSESSMENT Clear
== END ==
LOC: M.LAB 08:57
PROVIDERS: Nurse Practitioner
DX: I10 Essential (primary) hypertension (principal); E78.00 Pure hypercholesterolemia, unspecified

== ENCOUNTER → 2019-10-15 | Outpatient (CLI) | payer BC | LOC: M.ULTRA 10:26 | DX: R60.0 Localized edema (principal); M79.662 Pain in left lower leg ==

== ENCOUNTER → 2019-12-09 | Outpatient (CLI) | payer BC ==
[2019-12-09 12:20] LABS: CALCIUM 8.7 mg/dL (8.5-10.1); POTASSIUM 4.4 mmol/L (3.5-5.1)
== END ==
LOC: M.LAB 11:53
PROVIDERS: ATTEND Nurse Practitioner
DX: I10 Essential (primary) hypertension (principal)

== ENCOUNTER → 2020-01-26 | Outpatient (CLI) | payer BC ==
[~2020-01-26] MED LIST changes: +CLARITIN10 M3 PO; +COLESTID1 GM PO; +COQ-10100 MG PO; +CREON DR 6,0001 EACH PO; +NEOMYCIN SULFA500 MG PO; +TRIAMTERENE/HCT1 CA1 PO
[2020-01-26 12:12] LABS: ABSOLUTE BASOPHILS 0.1 thou/uL (0.0-0.2); ABSOLUTE EOSINOPHILS 0.2 thou/uL (0.0-0.7); ABSOLUTE LYMPHOCYTES 1.6 thou/uL (0.8-5.3); ABSOLUTE MONOCYTES 0.5 thou/uL (0.0-1.2); BASOPHILS 0.8 %; EOSINOPHILS 1.9 %; HEMATOCRIT 49.7 % (42.0-52.0); HEMOGLOBIN 17.7 gm/dL (14.0-18.0); LYMPHOCYTES 19.3 %; MCH 30.9 pg (26.0-34.0); MCHC 35.6 g/dL (28.0-37.0); MCV 86.6 fL (80.0-100.0); MONOCYTES 6.3 %; MPV 6.5 fl. (7.2-11.1); NUCLEATED RBCS 0 /100WBC; PLATELET COUNT* 173 thou/uL (150-400); POLYS 71.7 %; RBC 5.73 mil/uL (4.50-6.00); RDW-CV 12.9 % (10.5-14.5); WBC 8.4 thou/uL (4.0-11.0)
[2020-01-26 12:34] LABS: ALBUMIN 3.9 g/dL (3.4-5.0); CALCIUM 8.4 mg/dL (8.5-10.1); CREATININE 1.4 mg/dL (0.6-1.3); TOTAL BILIRUBIN 0.8 mg/dL (<0.1-1.0); TOTAL PROTEIN 6.7 g/dL (6.4-8.2)
== END ==
LOC: M.LAB 11:50
PROVIDERS: ATTEND Internal Medicine Gastroenterology
DX: R19.7 Diarrhea, unspecified (principal)

== ENCOUNTER → 2020-02-02 | Day surgery (SDC) | payer BC ==
[2020-02-02 10:13] LABS: HEMATOCRIT 54.9 % (42.0-52.0); HEMOGLOBIN 19.4 gm/dL (14.0-18.0); MCH 30.9 pg (26.0-34.0); MCHC 35.3 g/dL (28.0-37.0); MCV 87.4 fL (80.0-100.0); MPV 6.5 fl. (7.2-11.1); RBC 6.28 mil/uL (4.50-6.00); RDW-CV 13.3 % (10.5-14.5); WBC 11.7 thou/uL (4.0-11.0)
[2020-02-02 10:16] LABS: CREATININE 1.3 mg/dL (0.6-1.3); POTASSIUM 4.4 mmol/L (3.5-5.1)
[2020-02-02 10:24] LABS: INR 1.2; PROTIME 11.9 Seconds (9.20-11.50)
--- NOTE | 2020-02-04 15:08 | PATH ---
[address] [address] PATHOLOGY RPT PROCEDURE Name: LEXUS MORALES [id number] Admission: 02/02/20 Date of : 62 Discharge: Report #: [id number] Path Case #: [id number] [facility] Accession Number: [id number] . 01 Material submitted: . PART A: colon - RANDOM COLON BIOPSIES PART B: rectosigmoid junction - RECTAL SIGMOID COLON BIOPSIES . 01 Clinician provided ICD-10: E87.6 . 02 Diagnosis: A. Random colon biopsies: - Focal fresh hemorrhage and hyperplastic lymphoid follicle (Peyer's patch) in otherwise normal colonic mucosa. . B. Rectosigmoid colon biopsies: - Several fragments of hyperplastic polyp(s) and focal fresh hemorrhage in otherwise normal colonic mucosa. (CHANEL:oral; 02/04/2020) S 02/04/2020 1417 Local . 02 Electronically signed: . Joel Pike MD, Pathologist NPI- [id number] . 01 Gross description: . A. The specimen is received in formalin, labeled "Lexus Morales, random colon" and consists of multiple fragments of singleton-brown tissue measuring 1.2 x 0.7 x 0.2 cm in aggregate which are entirely submitted in A1. . B. The specimen is received in formalin, labeled "Lexus Morales, rectal sigmoid colon" and consists of multiple fragments of singleton-brown tissue measuring 1.2 x 0.5 x 0.3 cm in aggregate which are entirely submitted in B1. (SDY; 02/03/2020) SYU/SYU 02/03/2020 1206 Local . 02 Pathologist provided ICD-10: K92.2, K63.5 . 02 CPT . 152083, 493302 Specimen Comment: A courtesy copy of this report has been sent to [phone] Specimen Comment: 2053, Specimen Comment: Report sent to ,DR CHI / DR ESQUIVEL Performed at: [address] [place] [address] PATHOLOGY RPT PROCEDURE Name: LEXUS MORALES [facility] [id number] Admission: 02/02/20 Date of : 62 Discharge: Report #: [id number] Path Case #: [id number] [facility] [place] [address] [facility] [address], [place], [place] [id number] MD Cristobal Samuels MD Phone: [phone] Performed at: 02 [facility] [address], [place], [place] [id number] MD Joel Pike MD Phone: [phone]
== END | disposition home or self-care (01) ==
LOC: M.SUR 09:44
PROVIDERS: ATTEND Internal Medicine Gastroenterology
DX: K52.9 Noninfective gastroenteritis and colitis, unspecified (principal); K64.8 Other hemorrhoids; K63.89 Other specified diseases of intestine; I48.91 Unspecified atrial fibrillation; Z79.899 Other long term (current) drug therapy; Z98.890 Other specified postprocedural states

== ENCOUNTER → 2020-02-13 | Outpatient (CLI) | payer OTHER ==
[2020-02-13 10:32] LABS: ABSOLUTE BASOPHILS 0.1 thou/uL (0.0-0.2); ABSOLUTE EOSINOPHILS 0.1 thou/uL (0.0-0.7); ABSOLUTE LYMPHOCYTES 1.4 thou/uL (0.8-5.3); ABSOLUTE MONOCYTES 0.6 thou/uL (0.0-1.2); ABSOLUTE NEUTROPHILS 4.7 thou/uL (1.6-8.1); BASOPHILS 1.4 %; EOSINOPHILS 2.2 %; HEMATOCRIT 52.3 % (42.0-52.0); HEMOGLOBIN 18.6 gm/dL (14.0-18.0); LYMPHOCYTES 19.9 %; MCH 30.9 pg (26.0-34.0); MCHC 35.5 g/dL (28.0-37.0); MCV 87.1 fL (80.0-100.0); MONOCYTES 9.2 %; MPV 6.5 fl. (7.2-11.1); NUCLEATED RBCS 0 /100WBC; PLATELET COUNT* 178 thou/uL (150-400); POLYS 67.3 %; RBC 6.01 mil/uL (4.50-6.00); RDW-CV 13.2 % (10.5-14.5); WBC 6.9 thou/uL (4.0-11.0)
[2020-02-13 10:40] LABS: ALKALINE PHOSPHATASE 87 U/L (46-116); ANION GAP 6 mmol/L (7-16); BUN 24 mg/dL (7-18); CALCIUM 8.7 mg/dL (8.5-10.1); CHLORIDE 100 mmol/L (98-107); CO2 29 mmol/L (21-32); CREATININE 1.1 mg/dL (0.6-1.3); GLUCOSE 117 mg/dL (70-99); POTASSIUM 3.9 mmol/L (3.5-5.1); SGOT 66 U/L (15-37); SGPT 220 U/L (30-65); SODIUM 135 mmol/L (136-145); TOTAL BILIRUBIN 0.9 mg/dL (<0.1-1.0); TOTAL PROTEIN 7.3 g/dL (6.4-8.2)
[2020-02-13 10:52] LABS: CHOLESTEROL 104 mg/dL (<200); HDL CHOLESTEROL 25 mg/dL (>40); LDL CHOLESTEROL 58 mg/dL (<100); TC:HDL 4.2 Ratio (Not establshd); TRIGLYCERIDE 106 mg/dL (<150); VLDL 21 mg/dL (<40)
[2020-02-13 10:54] LABS: SERUM ASSESSMENT Clear
[2020-02-13 23:06] LABS: GLYCOHEMOGLOBIN (HGB A1C) 6.2 % (4.8-5.6)
== END ==
LOC: M.LAB 10:05
PROVIDERS: ATTEND Family Medicine
DX: N40.1 Benign prostatic hyperplasia with lower urinary tract symptoms (principal); R73.03 Prediabetes; R39.12 Poor urinary stream; R10.31 Right lower quadrant pain; R10.32 Left lower quadrant pain; I10 Essential (primary) hypertension; I48.19 Other persistent atrial fibrillation; I25.10 Atherosclerotic heart disease of native coronary artery without angina pectoris; E78.00 Pure hypercholesterolemia, unspecified

== ENCOUNTER 2020-05-05 21:27 | Observation (INO) | payer OTHER ==
[~2020-05-05] VITALS: Ht 185.4 cm; Wt 122.0 kg
[2020-05-05 21:36] VITALS: BP 107/74
[2020-05-05 22:04] LABS: ABSOLUTE BASOPHILS 0.1 thou/uL (0.0-0.2); ABSOLUTE EOSINOPHILS 0.2 thou/uL (0.0-0.7); ABSOLUTE MONOCYTES 1.1 thou/uL (0.0-1.2); ABSOLUTE NEUTROPHILS 7.4 thou/uL (1.6-8.1); BASOPHILS 0.9 %; EOSINOPHILS 2.3 %; HEMATOCRIT 47.9 % (42.0-52.0); HEMOGLOBIN 16.8 gm/dL (14.0-18.0); LYMPHOCYTES 18.1 %; MCH 30.9 pg (26.0-34.0); MCV 88.4 fL (80.0-100.0); MONOCYTES 10.5 %; MPV 6.4 fl. (7.2-11.1); NUCLEATED RBCS 0 /100WBC; PLATELET COUNT* 199 thou/uL (150-400); POLYS 68.2 %; RBC 5.43 mil/uL (4.50-6.00); RDW-CV 13.2 % (10.5-14.5); WBC 10.9 thou/uL (4.0-11.0)
[2020-05-05 22:16] LABS: CALCIUM 8.4 mg/dL (8.5-10.1); CREATININE 1.2 mg/dL (0.6-1.3); POTASSIUM 3.9 mmol/L (3.5-5.1)
[2020-05-05 22:17] LABS: INR 1.1; PROTIME 11.4 Seconds (9.20-11.50)
[2020-05-05 22:27] LABS: ALBUMIN 3.2 g/dL (3.4-5.0); MAGNESIUM 1.7 mg/dL (1.8-2.4); TOTAL BILIRUBIN 0.5 mg/dL (<0.1-1.0); TOTAL PROTEIN 6.1 g/dL (6.4-8.2)
[2020-05-06 02:22] VITALS: BP 122/69
[2020-05-06 02:45] VITALS: BP 142/67
[2020-05-06 08:00] VITALS: BP 138/69
[2020-05-06] MEDS ORDERED: IBUPROFEN 400400 M2 PO (09:44)
--- NOTE | 2020-05-06 10:46 | EKG ---
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 : 1960 Requested By: Dorita Bahena Order Number: [id number] MD: Darion Fisher Measurements Intervals [place] Rate: 75 P: 8 ND: 150 QRS: 82 QRSD: 110 T: 49 QT: 390 QTc: 436 Interpretive Statements Sinus rhythm Atrial premature complexes Borderline low voltage, extremity leads Compared to ECG 10/31/2018 21:22:09 Atrial premature complex(es) now present Electronically Signed On 05-06-2020 10:45:54 ALTERATIONS SEWER by Darion Fisher [email or web address] <ELECTRONICALLY SIGNED> By: Darion Fisher MD, FAC 05/06/20 1045 33 Darion Fisher MD, [facility] /EPI
--- NOTE | 2020-05-06 11:24 | NUR ---
ASSUMED CARE OF PT AT 0730. PT SITTING UP IN THE RECLINER. NPO FOR CARDIOLOGY. SEEN BY CARDIOLOGY, OK FOR DISCHARGE AND TAKE IBU TID FOR INFLAMMATION. DR POWELL HERE TO SEE PT. OK FOR DISCHARGE AFTER ECHO TODAY. PT DENIES ANY PAIN OR SHORTNESS OF BREATH. NON PROD COUGH NOTED. TRACING SB/SR WITH OCCASIONAL PAC'S ON THE TOOL/DIE MAKER. ON RA SAT UPPER 90'S. PT UP AD CHETAN IN ROOM. PT GOAL FOR TODAY IS REMAIN FREE FROM CHEST PAIN AND DISCHARGE PLANNING AFTER ECHO. AM ASSESSMENT CHARTED. MEDICATIONS PER JUL. PT REPOSITIONS SELF. HOURLY ROUNDING OBSERVED. BED IN LOW POSITION. CALL LIGHT WITHIN REACH. WILL CONTINUE PLAN OF CARE.
--- NOTE | 2020-05-06 11:45 | 2DMMODE ---
[place] [address] 2 D/M-MODE ECHOCARDIOGRAM Name: LEXUS MORALES Room: [address] Karyna#: [id number] Admission: 05/06/20 Attend Phys: Marivel Salinas, Discharge: Date of : 62 Date of Service: 05/06/20 1145 Report #: [id number] THIS REPORT FOR: cc: Tor Reynolds,Demetrio Bautista MD [facility] ~ ADDENDUM APPROVED REPORT Study performed: 05/06/2020 10:55:09 EXAM: Comprehensive 2D, Doppler, and color-flow Echocardiogram Patient Location: In-Patient Room #: [facility] Status: routine BSA: 2.44 HR: 62 bpm BP: 142/67 mmHg Rhythm: NSR Other Information Study Quality: Good Indications Chest Pain 2D Dimensions IVSd: 12.48 (7-11mm) LVOT Diam: 23.51 (18-24mm) LVDd: 51.25 mm PWd: 11.81 (7-11mm) Ascending Ao: 37.43 (22-36mm) LVDs: 34.50 (25-40mm) Aortic Root: 44.81 mm Volumes Left Atrial Volume (Systole) LA ESV Index: 22.30 mL/m2 Aortic Valve AoV Peak Jayme.: 0.95 m/s AO Peak Gr.: 3.60 mmHg LVOT Max P.75 mmHg AO Mean Gr.: 2.04 mmHg LVOT Mean P.40 mmHg LVOT Max V: 0.83 m/s AO V2 VTI: 19.55 cm LVOT Mean V: 0.55 m/s IAN (VTI): 4.02 cm2 LVOT V1 VTI: 18.12 [place] [address] 2 D/M-MODE ECHOCARDIOGRAM Name: LEXUS MORALES Room: [address]R.#: [id number] Admission: 05/06/20 Attend Phys: Marivel Salinas, Discharge: Date of : 62 Date of Service: 05/06/20 1145 Report #: [id number] Mitral Valve E/A Ratio: 1.22 MV Decel. Time: 190.62 ms MV E Max Jayme.: 0.84 m/s MV PHT: 55.28 ms MVA (PHT): 3.98 cm2 TDI E/Lateral E': 8.40 E/Medial E': 9.33 Medial E' Jayme.: 0.09 m/s Lateral E' Jayme.: 0.10 m/s Pulmonary Valve PV Peak Jayme.: 1.09 m/s PV Peak Gr.: 4.73 mmHg Left Ventricle The left ventricle is normal size. There is normal LV segmental wall motion. Mild concentric left ventricular hypertrophy. Left ventricular systolic function is normal. LVEF is 55-60%. Grade I - abnormal relaxation pattern. Right Ventricle The right ventricle is normal size. The right ventricular systolic function is normal. Atria Left atrium is mildly dilated. Right atrium is mildly dilated. Aortic Valve The aortic valve is normal in structure. No aortic regurgitation is present. There is no aortic valvular stenosis. Mitral Valve The mitral valve is normal in structure. Trace mitral regurgitation. No evidence of mitral valve stenosis. Tricuspid Valve The tricuspid valve is normal in structure. Unable to assess PA pressure. Trace tricuspid regurgitation. Pulmonic Valve The pulmonary valve is normal in structure. There is no pulmonic valvular regurgitation[place] [address] 2 D/M-MODE ECHOCARDIOGRAM Name: MILLIEGEETHALEXUS [address]: [address] [id number] Admission: 05/06/20 Attend Phys: Marivel Salinas, Discharge: Date of : 62 Date of Service: 05/06/20 1145 Report #: [id number] The aortic root is moderately dilated at the level of the coronary sinuses measuring 4.48 cm diameter. IVC is normal in size and collapses >50% with inspiration. Pericardium There is no pericardial effusion. <Conclusion> The left ventricle is normal size. Mild concentric left ventricular hypertrophy. Left ventricular systolic function is normal. LVEF is 55-60%. Grade I - abnormal relaxation pattern. Left atrium is mildly dilated. Right atrium is mildly dilated. Trace mitral regurgitation. Trace tricuspid regurgitation. IVC is normal in size and collapses >50% with inspiration. The aortic root is moderately dilated at the level of the coronary sinuses measuring 4.48 cm diameter. <ELECTRONICALLY SIGNED> By: Demetrio Daivs MD, FACC 05/06/20 1145 1145 1145 Demetrio Davis MD, FACC /INF
[2020-05-06 11:55] VITALS: BP 138/69
--- NOTE | 2020-05-06 13:09 | NUR ---
PT RECEIVED ECHO-REFER TO RESULTS. DISCHARGE ORDERS RECEIVED. DISCHARGE INSTRUCTIONS, CARE NOTES, SCRIPTS AND FOLLOW UP APPTS GIVEN TO PT. PT COMMUNICATES UNDERSTANDING OF DISCHARGE TEACHING. IV AND DRAPERY ROD ASSEMBLER REMOVED. PT DISCHARGED WITH ALL BELONGINGS AND PAPERWORK VIA WHEELCHAIR WITH NURSING STAFF TO SPOUSE OWN PERSONAL VEHICLE.
== END 2020-05-06 13:10 | disposition home or self-care (01) ==
LOC: M.ERS 21:27 → M.TBA-ER 05-06 00:36 → M.2W 05-06 00:36
PROVIDERS: Emergency Medicine; ADMIT Internal Medicine; ATTEND Internal Medicine
DX: R07.89 Other chest pain (principal); I25.10 Atherosclerotic heart disease of native coronary artery without angina pectoris; E78.5 Hyperlipidemia, unspecified; I10 Essential (primary) hypertension; I48.91 Unspecified atrial fibrillation; E78.00 Pure hypercholesterolemia, unspecified; Z79.899 Other long term (current) drug therapy; Z87.891 Personal history of nicotine dependence; Z95.1 Presence of aortocoronary bypass graft

== ENCOUNTER → 2020-11-19 | Outpatient (CLI) | payer OTHER ==
[~2020-11-19] MED LIST changes: +IBUPROFEN 400400 M2 PO
== END ==
LOC: M.MRI 13:05
PROVIDERS: ATTEND Podiatrist Foot & Ankle Surgery
DX: M76.62 Achilles tendinitis, left leg (principal); M77.32 Calcaneal spur, left foot; M25.472 Effusion, left ankle; M25.572 Pain in left ankle and joints of left foot